=== PATIENT | male | born 1990 | race Caucasian/White ===

== ENCOUNTER 2019-07-17 11:41 | Observation (INO) ==
--- NOTE | 2019-07-16 15:25 | Anesthesiology Consultation ---
Date of Service July 16, 2019 Assessment & Plan (1) Encounter for pre-operative examination: Chart Review Chart Review: Acceptable Risk for Surgery and Patient NOT seen in Pre Admission Testing History Surgery Operation Date: 07/17/19 07:00 Proposed Procedures p Left Open Inguinal Hernia Repair with Mesh - Tom Jeff DO s Left Orchiectomy - Zoltan Lake DO Height/Weight Height: 6 ft 7 in Weight: 114.759 kg Allergies Allergy/AdvReac Type Severity Reaction Status Date / Time cefaclor Allergy Mild as child Verified 07/16/19 14:51 Iodinated Contrast Media Allergy Mild swelling Verified 07/16/19 14:51 of lips PEDIAZOL Allergy Mild as child Uncoded 07/16/19 14:51 Medications Home Medications Medication Instructions Recorded Confirmed Last Taken No Known Home Medications 07/16/19 07/16/19 Unknown Past Medical History Medical History GERD (gastroesophageal reflux disease) Gilbert disease HTN (hypertension) no medication Testicular neoplasm Past Family History Family History Grandfather Prostate cancer Past Surgical History Surgical History Hx of myringotomy as child Status post adenoidectomy Social History Smoking Status: Never smoker Do You Dip or Chew Tobacco: No Hx Alcohol Use: Yes alcohol intake frequency: a few times a month Hx Substance Use: No substance use type: does not use
[~2019-07-17 11:41] MED LIST: CEFAZOLIN 2000MG 2,000 MG/15 ML SYR IV SCH; LR 15ML/HR IV SCH
--- NOTE | 2019-07-17 13:33 | History & Physical Bridge Note ---
Date of Service July 17, 2019 History & Physical Bridge Note I have examined the patient, reviewed the History & Physical and in the interval since the performance of the History & Physical I have noted the following changes of clinical significance: no changes noted Plan for radical inguinal orchiectomy.
[2019-07-17] MEDS ORDERED: LABETALOL HCL IV 5 MG/ML 20ML IV PRN (14:14)
[2019-07-17] MEDS ORDERED: ATROPINE SULFATE 0.1 MG/ML 10ML SYR IV PRN (14:14)
[2019-07-17] MEDS ORDERED: KETOROLAC 30 MG/ML VIAL IV PRN (14:14)
[2019-07-17] MEDS ORDERED: ONDANSETRON INJ 2 MG/ML 2 ML VIAL IV PRN ×2 (14:14→19:44)
[2019-07-17] MEDS ORDERED: fentaNYL citrate 100 MCG/2 ML VIAL IV PRN (14:14)
[2019-07-17] MEDS ORDERED: fentaNYL citrate 100 MCG/2 ML VIAL ONE ×2 (14:35→15:20)
[2019-07-17] MEDS ORDERED: MIDAZOLAM HCL 1 MG/ML 2ML VIAL ONE (14:36)
[2019-07-17] MEDS ORDERED: EPINEPHrine INJ 1 MG/ML AMP ONE (14:47)
[2019-07-17] MEDS ORDERED: BUPIVACAINE 0.5 % 5 MG/1 ML MPF 30ML VIAL ONE (14:47)
[2019-07-17] MEDS ORDERED: PROPOFOL IV EMULSION 10 MG/ML 20 ML VIAL IV ONE ×2 (15:20→15:32)
[2019-07-17] MEDS ORDERED: LIDOCAINE HCL 2% 2 ML VIAL/AMP(20MG/ML) INFIL ONE (15:20)
[2019-07-17] MEDS ORDERED: DEXAMETHASONE SOD INJ 4 MG/ML VIAL ONE (15:23)
[2019-07-17] MEDS ORDERED: ONDANSETRON INJ 2 MG/ML 2 ML VIAL ONE (15:23)
[2019-07-17] MEDS ORDERED: HYDROmorphone INJ 2 MG/ML SYR/VIAL ONE (15:35)
--- NOTE | 2019-07-17 16:08 | Operative Report ---
PG Post Operative Report Pre & Post Diagnosis Operation Date: 07/17/19 07:00 Pre-Op Diagnosis: Left Inguinal Hernia; Left Testicular Mass Post-Op Diagnosis: Left Inguinal Hernia; Left Testicular Mass I identified the patient and participated in the time-out.: Yes Procedure Operation Date: 07/17/19 07:00 Actual Procedures s Left Open Inguinal Hernia Repair with Mesh(Left) - Tom Jeff DO p Left Inguinal Radical Orchiectomy(Left) - Zoltan Lake DO Surgeon Zoltan Lake II, DO Tip Finisher DO Tomer Estimated Blood Loss 5 Findings Consistent with Post-Op Diagnosis Significant inguinal hernia requiring repair prior to high ligation and incision of cord structures. Specimens Left Radical Testicle and Cord Drains None Anesthesia Type General Complications none Disposition Disposition: Recovery Room Indications Left solid mass of the testicle. Risks and benefits discussed at length. Description of Procedure Patient was consented and brought back to the operating room. Patient was placed under anesthesia in the supine position. Patient was prepped and draped in the regular sterile fashion. A time out was completed. With the time out completed and the patient prepped, the inguinal region on the left was marked and local injected into the subcutaneous tissues. An incision was made with a scalpel and the deep tissues were dissected with bovie electrocautery. Dissection was taken down to the inguinal ring. The was retracted and exposed. The Inguinal ring was opened with Metzenbaum scissors. The cord was isolated and a mary drain was utilized to isolate it further. The very large inguinal hernia limited ability to isolate the cord structure. To further isolate the cord, the inguinal hernia had to be reduced. With reduction, the hernia continued to enter into the field. Dr. Jeff with general surgery was intraoperatively consulted to assist with the inguinal hernia. This was able to be retracted further. The cord was then isolated along the inguinal canal and dissected free. Dulce Clamps were placed across the cord. The Cord was then cut and the Testicle was delivered from the scrotum. This was freed from the scrotal attachments. This was then passed off and sent for pathologic analysis. The cord stump was inspected. The cord was then ligated x 2 with silk ties and with a 1-0 Silk stitch. This was then assessed. No bleeding or other issues. The inguinal defect was assessed. Discussion with DO Tomer it was decided to close the defect to repair the inguinal hernia. Please see his note for the full report. The area was irrigated with copious irrigation and inspected. No areas of concern. The scrotal wall was also inspected and free of issues. After repair of the hernia defect, closure was completed by the General Surgery Team. The skin was closed with them and glue placed over the in cision. Please see their note for full report. The patient was cleaned, aroused from anesthesia, and transferred to the pacu in stable condition having tolerated the procedure well with no complications. I was present and participated in all aspects of the procedure. Please see General Surgery Operative report for the full information. Dr. Jeff was eugene during the closure of the hernia and the closure of the layers and skin. I attest to the content of the Intraoperative Record and any orders documented therein. Any exceptions are noted below.
--- NOTE | 2019-07-17 16:13 | Operative Report ---
PG Post Operative Report Pre & Post Diagnosis Operation Date: 07/17/19 07:00 Pre-Op Diagnosis: Left Inguinal Hernia; Left Testicular Mass Post-Op Diagnosis: Left Inguinal Hernia; Left Testicular Mass I identified the patient and participated in the time-out.: No Procedure Operation Date: 07/17/19 07:00 Actual Procedures s Left Open Inguinal Hernia Repair with Mesh(Left) - Tom Jeff DO p Left Orchiectomy(Left) - Zoltan Lake DO Surgeon Tom Jeff DO Multilith Operator barbi Barker Estimated Blood Loss 5 Findings Consistent with Post-Op Diagnosis Specimens none ( testicle per Dr. Lake) Description of Procedure I was called for an intraoperative consult by Dr. Lake. The patient was already in the operating room with a left inguinal incision already made. They were there to perform a left orchiectomy for a testicular mass. During dissection of the cord Dr. Lake noted an indirect hernia with incarceration. This made it impossible for him to safely transect the cord and cord structures for appropriate oncologic resection. At this point I scrubbed into the case to evaluate. The hernia sac was in fact an indirect hernia that was incarcerated. We were able to dissect this back to its neck with the cord and cord structures and then reduce it. It was able to stay self reduced. At this point Dr. Lake completed his left orchiectomy. Once this was completed I then used a piece of polypropylene mesh to repair the inguinal canal. It was secured with 0 Ethibond and secured distally to Syed's ligament laterally along the shelving portion of Poupart's ligament and medially along the midline musculature. The mesh laid nice and flat and tension-free. It did have a keyhole incorporated into it which I closed again using 0 Ethibond since he did not have a spermatic cord or cord structures. There was adequate hemostasis at the end of the procedure. I thoroughly irrigated the wound. I injected Marcaine around the edges of the mesh for postoperative analgesia. A final irrigation was performed and then the external bleak aponeurosis was closed using 2-0 Vicryl in a running fashion. Soft tissue was closed using 3-0 Vicryl and skin was closed using 4-0 Monocryl. Some additional Marcaine was injected around the incision and Dermabond glue was used as a dressing. The patient was awakened extubated and transferred recovery in stable condition. Please see Dr. Lake dictation for a detailed account of his portion of the surgery. My physician offset press assistant was present throughout my portion of the procedure. He helped with exposure for the repair as well as for wound closure and dressing placement. I attest to the content of the Intraoperative Record and any orders documented therein. Any exceptions are noted below.
--- NOTE | 2019-07-17 16:48 | Anesthesiology Progress Note ---
Date of Service July 17, 2019 Anesthesia Post Procedure Vital Signs Vital Signs: Temp Pulse Pulse Resp BP Pulse Ox 07/17/19 16:45 79 18 141/79 H 95 07/17/19 16:35 84 13 134/92 98 07/17/19 16:25 82 15 143/83 H 100 07/17/19 16:19 36.5 C 91 H 15 133/74 98 07/17/19 12:22 37.2 C 95 H 20 163/105 H 97 Pain Intensity Left Groin: Pain Intensity: 3 Transfer of Care Handoff Completed per policy Notes Mental Status: alert / awake / arousable Patient Amnestic to Procedure: Yes Nausea / Vomiting: adequately controlled Pain: adequately controlled Airway Patency, RR, SpO2: stable & adequate BP & HR: stable & adequate Hydration State: stable & adequate Anesthetic Complications: no major complications apparent
[2019-07-17] MEDS ORDERED: HYDROCODONE/ACETAMOPHEN 5/325MG TAB PO STA (17:26)
[2019-07-17] MEDS ORDERED: HYDROCODONE/ACETAMOPHEN 5/325MG TAB PO ONE (17:30)
[2019-07-17] MEDS ORDERED: ALUMINUM/MAGNESIUM SUSP 30 ML UDC PO PRN (19:44)
[2019-07-17] MEDS ORDERED: ACETAMINOPHEN 325 MG TAB PO PRN (19:44)
--- NOTE | 2019-07-17 19:45 | Anesthesiology Progress Note ---
Date of Service July 17, 2019 Anesthesia Post Procedure Vital Signs Vital Signs: Temp Pulse Pulse Resp BP Pulse Ox 07/17/19 18:45 81 16 129/90 98 07/17/19 18:00 70 12 102/61 96 07/17/19 17:45 83 16 140/87 95 07/17/19 17:15 37.2 C 80 16 141/91 H 95 07/17/19 17:06 86 14 136/84 95 07/17/19 16:55 36.8 C 68 15 133/77 96 07/17/19 16:45 79 18 141/79 H 95 07/17/19 16:35 84 13 134/92 98 07/17/19 16:25 82 15 143/83 H 100 07/17/19 16:19 36.5 C 91 H 15 133/74 98 07/17/19 12:22 37.2 C 95 H 20 163/105 H 97 Pain Intensity Left Groin: Pain Intensity: 3 Notes Mental Status: alert / awake / arousable Patient Amnestic to Procedure: Yes Nausea / Vomiting: adequately controlled Pain: adequately controlled Airway Patency, RR, SpO2: stable & adequate BP & HR: stable & adequate and see Notes below Hydration State: stable & adequate and see Notes below Anesthetic Complications: no major complications apparent Notes: The patient is s/p orchiectomy and hernia repair. He was signed out of PACU by Dr. Xiong and was doing well. Around 1800 he had to go to the bathroom in [facility]. While standing in the bathroom, he felt lightheaded so the nurse suggest that he sit down. When he sat down, he passed out. A eliza haque was called. The patient was quickly revived. He was helped back to bed. He was given one liter of IV fluid. His SBP went from 140 to 109. All other vitals remained stable. The patient felt nauseous at this point. Around 1914 the patient felt well enough to go to the bathroom again. The patient was sitting on the toilet when he felt nauseous and then lost consciousness. A second eliza haque was called. The patient was soon revived and helped to bed by the nurses. His vitals were checked and are stable. A BSG was 174. He is awake and talking. He feels well now while sitting in bed. The medicine team has ordered an EKG and will admit the patient overnight for observation. The patient and his family member agree with this plan. The [facility] are contacting Dr. Jeff and Dr. Lake to make them aware.
[2019-07-17 20:15] LABS: Basophils # (auto) 0.01 K/uL (0-0.2); Basophils % (auto) 0.1 %; Eosinophils # (auto) 0.01 K/uL (0-0.5); Eosinophils % (auto) 0.1 %; Hematocrit (blood only) 43.2 % (42-52); Hemoglobin 15.1 g/dL (14.0-18.0); Immature Granulocytes # (auto) 0.05 K/uL (0.00-0.02); Immature Granulocytes % (auto) 0.3 %; Lymphocytes # (auto) 0.66 K/uL (1.2-3.4); Lymphocytes % (auto) 3.8 %; Mean Corpuscular Hemoglobin 31.3 pg (25-34); Mean Corpuscular Volume 89.4 fL (80-100); Mean Platelet Volume 10.3 fL (7.4-10.4); Monocytes # (auto) 0.26 K/uL (0.11-0.59); Monocytes % (auto) 1.5 %; Neutrophils # (auto) 16.43 K/uL (1.4-6.5); Neutrophils % (auto) 94.2 %; Platelet Count 273 K/uL (130-400); RDW Coefficient of Variation 12.2 % (11.5-14.5); RDW Standard Deviation 39.6 fL (36.4-46.3); Red Blood Count 4.83 M/uL (4.7-6.1); White Blood Count 17.42 K/uL (4.8-10.8)
[2019-07-17] MEDS ORDERED: MoRPHine SULFATE 2 MG/ML CARP IV PRN (21:01)
[2019-07-17 21:06] LABS: BUN Creatinine Ratio 18.6 (10-20); Blood Urea Nitrogen 20 mg/dl (7-18); Calcium 8.6 mg/dl (8.5-10.1); Carbon Dioxide 26 mmol/L (21-32); Chloride 107 mmol/L (98-107); Creatinine Clr Calc Pharmacy 131.3 ml/min; Est GFR (Non-African American) 90.6; Glucose 158 mg/dl (70-99); Potassium 3.5 mmol/L (3.5-5.1); Sodium 139 mmol/L (136-145)
[2019-07-17 21:11] LABS: Troponin I < 0.015 ng/ml (0-0.045)
[2019-07-17] MEDS: OXYCODONE/ACETAMINOPHEN 5mg/325mg TAB PO PRN (21:39)
--- NOTE | 2019-07-17 22:08 | History & Physical Report ---
Date of Service July 17, 2019 Assessment & Plan (1) Syncope: Post-Op Syncope Appears to be vasovagal or micturition associated syncope or associated with visceral nerve stimulation from surgery Very little concern for post op blood loss based on exam with soft nontender abdomen and normal appearing incision Will check CBC, bmp, troponin, and give 1 L NSS bolus EKG performed and interpreted at bedside, normal sinus Will admit to tele for obs overnight Hope to d/c home tomorrow morning. Testicular Mass Concern for testicular cancer Orchiectomy performed today, will follow up with urology outpatient F/E/N: Regular diet, Bolused 1 L NSS repeat if needed based on vitals DVT PPx: SCD Dispo: Likely home tomorrow as symptoms improve (2) Testicular mass: History of Present Illness Chief Complaint: Recurrent Syncope post op Primary Care Provider: NO PCP Noah Rutherford is a 29 year old gentleman here today for an orchiectomy for a left testicular mass in same day surgery with Dr. Lake. He had surgery which included a hernia repair performed by general surgery. Surgery was successful and patient was moved to same day surgery recovery. At around 6 pm patient stood up to go to the bathroom. At this time he began to feel pre syncopal and pulled the help cord and a code purple was called. He lost consciousness and was helped immediately, he did not hit his head or have any injuries. He came to quickly and code purple was called off. BP immediately after this incident was 100's/60's and quickly improved back to 130/80's. An hour and a half later another code purple was called after patient got up to go to the bathroom again. He was advised to stay seated this time and while on the toilet became presyncopal again. Again called for help and again lost consciousness this time while seated. Code purple was called which I responded to and found patient looking pale but awake and I helped him with the nursing team back into bed. At that time blood pressure again dropped to 100's over 60's and the rest of his vitals were WNL. Physical exam was unremarkable, no evidence of post op bleeding, abdomen soft and nontender apart from some incisional pain. Decision was made at this time to admit patient for observation overnight as he was not safe to discharge home. On review of systems patient only currently endorses incisional pain, but otherwise feels like himself. He denies any palpitations, fevers, chills, vertigo, light headedness (currently though he did experience this before syncopizing) He is accompanied by his sister. Allergies Allergy/AdvReac Type Severity Reaction Status Date / Time cefaclor Allergy Mild as child Verified 07/16/19 14:51 Iodinated Contrast Media Allergy Mild swelling Verified 07/16/19 14:51 of lips PEDIAZOL Allergy Mild as child Uncoded 07/16/19 14:51 Home Medications Home Medications Medication Instructions Recorded Confirmed Type hydrocodone-acetaminophen [[place]] 1 - 2 tab PO Q4H PRN #15 tab 07/17/19 Rx Past Med/Surg History Medical History GERD (gastroesophageal reflux disease) Gilbert disease HTN (hypertension) no medication Testicular neoplasm Surgical History Hx of myringotomy as child Status post adenoidectomy Family History Grandfather Prostate cancer Social History (Updated 07/16/19 @ 12:57 by Monica Castillo) Preferred Language: Tuvaluan Communication Ability: Effective Antiquer Required: No Beliefs That Will Affect Care: None marital status: Current Living Situation: Alone current occupational status: employed Other Information That Helps Us Care for You: No Feels Safe at Home: Yes Safety Concerns: Feels Safe At This Time Smoking Status: Never smoker Do You Dip or Chew Tobacco: No ; Second Hand Exposure: No ; Tobacco Cessation Education Requested by Patient: No Hx Alcohol Use: Yes Alcohol Intake Frequency: Holidays/Special Occasions Hx Substance Use: No Review of Systems Review of Systems: All systems reviewed & are unremarkable except as noted in HPI & below Physical Exam Constitutional: Constitutional: Patient is appears to be a healthy well developed 29 year old man in no acute distress but with clear pallor and anxious appearance Eyes: PERRLA, Anicteric Sclerae ENMT: NAD Resp: Lungs clear to auscultation, no increased work of breathing Cards: Heart sounds dual, regular rate and rhythm, strong pulses in all extremities GI: Incision LLQ, abdomen soft, nontender apart from incision SKin: Incision as above, otherwise warm and well perfused Results & Data Vital Signs (Past 12 Hours) Vital Signs Temp Pulse Pulse Resp BP Pulse Ox 07/17/19 19:51 121/84 07/17/19 18:45 81 16 129/90 98 07/17/19 18:00 70 12 102/61 96 07/17/19 17:45 83 16 140/87 95 07/17/19 17:15 37.2 C 80 16 141/91 H 95 07/17/19 17:06 86 14 136/84 95 07/17/19 16:55 36.8 C 68 15 133/77 96 07/17/19 16:45 79 18 141/79 H 95 07/17/19 16:35 84 13 134/92 98 07/17/19 16:25 82 15 143/83 H 100 07/17/19 16:19 36.5 C 91 H 15 133/74 98 07/17/19 12:22 37.2 C 95 H 20 163/105 H 97 Code Status & VTE Plan VTE Prophylaxis Plan VTE Prophylaxis will be ordered: Yes Supervising Physician Co-Signing Physician Notes Attending addendum: I have physically seen this patient, have supervised the medical residents activities, and agree with the H&P unless as otherwise noted. Assessment and Plan: Syncope- The patient will be admitted to telemetry for serial cardiac enzymes, serial EKG's, cardiac rhythm monitoring and a 2-D echocardiogram with Dopplers. Differential includes vasovagal/micturition syncope, delayed metabolism of anesthesia, pain medication issue, others Neuro checks. Status post orchiectomy- Urologist has been notified of admission. Remaining orders and notations as noted. Resident Activity Tracking Resident Involvement: Resident Care Provided Care Provided: Adult [facility]
[2019-07-18] MEDS: OXYCODONE/ACETAMINOPHEN 5mg/325mg TAB PO PRN ×5 (03:43→23:13)
--- NOTE | 2019-07-18 07:52 | Anesthesiology Progress Note ---
Date of Service July 18, 2019 Anesthesia Post Procedure Vital Signs Vital Signs: Temp Pulse Pulse Pulse Resp BP Pulse Ox 07/18/19 04:18 36.6 C 78 18 125/72 97 07/18/19 00:05 85 07/17/19 23:15 36.9 C 76 18 135/82 97 07/17/19 22:21 82 07/17/19 20:30 36.8 C 82 18 140/78 99 07/17/19 19:51 121/84 07/17/19 18:45 81 16 129/90 98 07/17/19 18:00 70 12 102/61 96 07/17/19 17:45 83 16 140/87 95 07/17/19 17:15 37.2 C 80 16 141/91 H 95 07/17/19 17:06 86 14 136/84 95 07/17/19 16:55 36.8 C 68 15 133/77 96 07/17/19 16:45 79 18 141/79 H 95 07/17/19 16:35 84 13 134/92 98 07/17/19 16:25 82 15 143/83 H 100 07/17/19 16:19 36.5 C 91 H 15 133/74 98 07/17/19 12:22 37.2 C 95 H 20 163/105 H 97 Pain Intensity Left Groin: Pain Intensity: 7 Notes Mental Status: alert / awake / arousable and participated in evaluation Patient Amnestic to Procedure: Yes Nausea / Vomiting: adequately controlled Pain: adequately controlled Airway Patency, RR, SpO2: stable & adequate BP & HR: stable & adequate Hydration State: stable & adequate Anesthetic Complications: no major complications apparent and Pt Satisfied with anesthetic care Notes: Pt had a vagal episode and had to be admitted, but states that e is doing fine this am
--- NOTE | 2019-07-18 09:36 | Discharge Summary ---
Date of Service July 18, 2019 Admission HPI Per Admitting Provider Noah Rutherford is a 29 year old gentleman here today for an orchiectomy for a left testicular mass in same day surgery with Dr. Lake. He had surgery which included a hernia repair performed by general surgery. Surgery was successful and patient was moved to same day surgery recovery. At around 6 pm patient stood up to go to the bathroom. At this time he began to feel pre syncopal and pulled the help cord and a code purple was called. He lost consciousness and was helped immediately, he did not hit his head or have any injuries. He came to quickly and code purple was called off. BP immediately after this incident was 100's/60's and quickly improved back to 130/80's. An hour and a half later another code purple was called after patient got up to go to the bathroom again. He was advised to stay seated this time and while on the toilet became presyncopal again. Again called for help and again lost consciousness this time while seated. Code purple was called which I responded to and found patient looking pale but awake and I helped him with the nursing team back into bed. At that time blood pressure again dropped to 100's over 60's and the rest of his vitals were WNL. Physical exam was unremarkable, no evidence of post op bleeding, abdomen soft and nontender apart from some incisional pain. Decision was made at this time to admit patient for observation overnight as he was not safe to discharge home. On review of systems patient only currently endorses incisional pain, but otherwise feels like himself. He denies any palpitations, fevers, chills, vertigo, light headedness (currently though he did experience this before syncopizing) He is accompanied by his sister. Discharge Data Allergies Allergy/AdvReac Type Severity Reaction Status Date / Time cefaclor Allergy Mild as child Verified 07/16/19 14:51 Iodinated Contrast Media Allergy Mild swelling Verified 07/16/19 14:51 of lips PEDIAZOL Allergy Mild as child Uncoded 07/16/19 14:51 Procedures Performed Operation Date: 07/17/19 07:00 Actual Procedures s Left Open Inguinal Hernia Repair with Mesh(Left) - Tom Jeff, DO p Left Orchiectomy(Left) - Zoltan Lake, DO Hospital Course (1) Syncope: Post-Op Syncope Appears to be vasovagal or micturition associated syncope or associated with visceral nerve stimulation from surgery Very little concern for post op blood loss based on exam with soft nontender abdomen and normal appearing incision Will check CBC, bmp, troponin, and give 1 L NSS bolus EKG performed and interpreted at bedside, normal sinus Will admit to tele for obs overnight Hope to d/c home tomorrow morning. Testicular Mass Concern for testicular cancer Orchiectomy performed today, will follow up with urology outpatient F/E/N: Regular diet, Bolused 1 L NSS repeat if needed based on vitals DVT PPx: SCD Dispo: Likely home tomorrow as symptoms improve (2) Testicular mass: Discharge Plan Discharge Items Patient Disposition: Home - Self-Care Reason For Visit: Left Inguinal Hernia; Testicular Mass; Syncope Discharge Diagnosis: Same Condition on Discharge: Good Activity: Resume your previous activity Lifting: No more than 25 pounds and Wait until after follow-up appointment Bathing Comment: Okay to shower in 24 hours. Sexual Activity: Wait until after follow-up appointment Exercise/Sports: Gradually increase as tolerated and Wait until after follow-up appointment Non-emergency contact: Surgeon and Urologist Call non-emergency contact if: you have any medication questions, your symptoms worsen, your pain is not controlled, your pain is worsening, your pain is con cerning for you, you have a fever, your temperature is above 101.5, your wound has increased redness, your wound has increased drainage and your wound pain has increased Follow-up/Referrals: Tom Jeff, DO [Surgeon] - (In 1-2 weeks, call to schedule if you do not have an appt) PCP,NO [Primary Care Provider] - Diet: Regular Addtl Attending Provider Instructions: Please take all medications as prescribed and keep follow-ups as scheduled. Please call our office at [phone] with any questions, concerns or need to reschedule appointments for any reason. We are happy to assist you. Complete antibiotics as prescribed, if indicated. Please do not drive, drink alcohol or operate machinery while taking prescription pain medication. We recommend continuing a stool softener (i.e. Colace) to prevent constipation/straining for at least two weeks after your procedure. Drink plenty of fluids, avoid sexual or strenuous exercise and do not lift >25 pounds until your follow-up. Call [facility] at [phone] promptly if you experience: Fever of 101F or greater Pain thats not controlled with medicine Trouble urinating or inability to urinate Severe pain into flank or severe scrotal swelling. Addtl Black Top Raker Provider Instructions: The dizziness and syncopal episodes you experienced after surgery were likely secondary to coming out of anesthesia and overactivation of your vagus nerve. To reduce likelihood of this happening again, we advise staying well hydrated and taking your time to change positions from laying to sitting, and sitting to standing. Putting increased pressure on your abdomen with movements such as bearing down or squatting can also illicit these reactions in the short term, so we advise taking extra precautions and letting someone know if you feel dizzy before going to the restroom. Pending Studies at Discharge: Yes (pathology ) Stand-Alone Forms: Anesthesia/Sedation, Adult, [facility] Medications and DC Order Prescriptions: New hydrocodone-acetaminophen [[place]] 5-325 mg tablet 1 - 2 tab PO Q4H PRN (Reason: pain, initial therapy, max 8 tabs daily) Qty: 15 RF: 0 Discharge Orders: Discharge Order (Routine); Ordered 07/17/19 Ordered By: Zoltan Kelsey/Other Patient Handouts: Surgery Prevent DVT After Admission Data Admit Date/Time: 07/17/19 19:43 Attending Provider: Oseas Contreras Admit Provider: Min Keane Primary Care Provider: PCP,NO Other Providers: Tom Jeff ; Annamarie Woodard
--- NOTE | 2019-07-18 11:54 | Urology Progress Note ---
Date of Service July 18, 2019 Assessment & Plan (1) Testicular mass: POD #1 s/p left inguinal hernia and left orchiectomy Admitted for syncopal episodes and orthostasis. Continue to improve, will allow primary service to direct disposition. Continue ice as needed, okay to use pyridium for dysuria. All questions answered, followup arranged. Subjective POD #1 s/p left inguinal hernia repair and left orchiectomy Pt was admitted for repeat syncopal episode post operatively. Having some orthostasis, nausea with standing. Pt is tolerating PO well. Some mild dysuria. No other complaints Moderate pain to incision site as expected, using ice. Review of Systems Review of Systems: All systems reviewed & are unremarkable except as noted in HPI & below Physical Exam Physical Exam: A&Ox3 Resp rate regular abd soft, nontender incision c/d/i Results & Data Vital Signs (Past 12 Hours) Vital Signs Temp Pulse Pulse Pulse Resp BP Pulse Ox 07/18/19 08:20 79 133/79 07/18/19 07:00 36.5 C 79 16 119/83 98 07/18/19 04:18 36.6 C 78 18 125/72 97 07/18/19 00:05 85 PG Care Time/CCT Total # of Minutes Spent Total Time Spent with Patient: Total time spent is greater than 50% in coordination of care (as documented) at patient's floor/unit and/or counseling patient:
--- NOTE | 2019-07-18 14:34 | Surgery Progress Note ---
Date of Service July 18, 2019 Assessment & Plan (1) Testicular mass: POD 1 inguinal hernia repair, orchiectomy, syncope no issues with hernia repair home when BP stable Dr. Jeff is covering the weekend if there are any concerns Subjective still feels lightheaded when getting up, tolerating diet, pain control good Physical Exam Gastrointestinal (Abdomen): Inspection/Auscultation: + abdominal surgical incision (clean, dry, no scrotal swelling) Percussion/Palpation: abdomen soft Results & Data Vital Signs (Past 12 Hours) Vital Signs Temp Pulse Pulse Resp BP Pulse Ox 07/18/19 11:54 36.5 C 89 22 147/91 H 97 07/18/19 08:20 79 133/79 07/18/19 07:00 36.5 C 79 16 119/83 98 07/18/19 04:18 36.6 C 78 18 125/72 97 PG Care Time/CCT Total # of Minutes Spent Total Time Spent with Patient: Total time spent is greater than 50% in coordination of care (as documented) at patient's floor/unit and/or counseling patient:
--- NOTE | 2019-07-18 14:35 | Hospitalist Progress Note ---
Date of Service July 18, 2019 Assessment & Plan (1) Syncope: Orthostatic hypotension - likely secondary to increased vagal tone from orchiectomy - orthostatics showed drop of >20 mmHg systolic and diastolic - has been getting fluids throughout admission; unlikely dehydration - will continue to monitor for symptom improvement as he heals from surgery - expect rebound within the next few days. If still symptomatic by Sunday, will consider POTS/other more chronic causes of orthostatic hypotension Testicular Mass POD1 s/p orchiectomy minimal pain able to urinate without issue today F/E/N: Regular diet, Bolused 1 L NSS repeat if needed based on vitals DVT PPx: SCD Dispo: med/surg (2) Testicular mass: Supervising Physician Co-Signing Physician Notes I personally examined the patient and verified all eugene points of history and exam, discussed case, and agree with decision making with Dr Hebert. Generally feeling okay whenever he is in bed. Was up into the chair without any lightheadedness, but he notes that it was really with walking that he was much more lightheaded. He has not walked since this morning he has not felt lightheaded since then, but did not feel safe with his lightheadedness whenever he was walking this morning. Sister present at the bedside. EKG does show an RSR prime in V1 V2 V3 and so on consistent with a right bundle branch block and repolarization changes that seem to fit with that. Persistent orthostasisagree with admitting physician that he likely is suffering from a constant ongoing vagal response given the nature of the surgery done. He does seem to be improving somewhat, just still too orthostatic to go home, will continue supportive care and observation for now. If this continues to go on without improvement then more obscure syndromes such as pots or other conduction issues may need to be considered, but thus far is not showing anythin g worrisome on monitor, and more than likely his symptoms will resolve just given a little bit more time. He is stable for transfer to medical, continue current care otherwise. Otherwise as above. Subjective Feeling well this morning. Denies any nausea or vomiting or dizziness at baseline, but does have dizziness and nausea that returns upon standing. No com plaints of chest pain or SOB. Review of Systems Constitutional: no fever, no chills, no body aches and no fatigue Respiratory: no cough and no dyspnea Cardiovascular: no chest pain, no dyspnea and no edema Gastrointestinal: no abdominal pain, no nausea, no vomiting, no constipation and no diarrhea/loose stools Physical Exam Constitutional: cooperative; no acute distress and not ill appearing Neck: normal visual inspection Respiratory: normal respiratory effort and able to speak in complete sentences; no respiratory distress, no labored breathing, no retractions, no cough and no audible wheezes Auscultation: lungs clear to auscultation bilaterally; no crackles, no rales, no rhonchi and no wheezes Cardiovascular: Rate/Rhythm: regular rate and regular rhythm Heart Sounds: normal S1 and normal S2; no gallop, no murmur and no cardiac rub Vessels: posterior tibial pulses present Extremities: no pedal edema and no edema Results & Data Vital Signs (Past 12 Hours) Vital Signs Temp Pulse Pulse Resp BP Pulse Ox 07/18/19 11:54 36.5 C 89 22 147/91 H 97 07/18/19 08:20 79 133/79 07/18/19 07:00 36.5 C 79 16 119/83 98 07/18/19 04:18 36.6 C 78 18 125/72 97 Orthostatics this AM: 127/81 laying in bed, 116/77 sitting, 105/69 standing with dizziness upon standing Resident Activity Tracking Resident Involvement: Resident Care Provided Care Provided: Adult Hospital Medicine
--- NOTE | 2019-07-18 18:51 | Billing Data ---
Date of Service July 18, 2019 Coding Level of Care Code 83280 Subseq Obs Care Lvl 2
--- NOTE | 2019-07-19 06:08 | Billing Data ---
Date of Service July 19, 2019 Coding Level of Care Code 09729 OBS Care - Level 3
[2019-07-19 08:05] LABS: Basophils # (auto) 0.01 K/uL (0-0.2); Basophils % (auto) 0.2 %; Eosinophils # (auto) 0.06 K/uL (0-0.5); Eosinophils % (auto) 0.9 %; Hematocrit (blood only) 34.5 % (42-52); Hemoglobin 11.8 g/dL (14.0-18.0); Immature Granulocytes # (auto) 0.02 K/uL (0.00-0.02); Immature Granulocytes % (auto) 0.3 %; Lymphocytes # (auto) 0.81 K/uL (1.2-3.4); Lymphocytes % (auto) 12.7 %; Mean Corpuscular Hemoglobin 30.6 pg (25-34); Mean Corpuscular Hgb Conc 34.2 g/dL (32-36); Mean Corpuscular Volume 89.6 fL (80-100); Mean Platelet Volume 9.9 fL (7.4-10.4); Monocytes # (auto) 0.75 K/uL (0.11-0.59); Monocytes % (auto) 11.7 %; Neutrophils # (auto) 4.75 K/uL (1.4-6.5); Neutrophils % (auto) 74.2 %; Platelet Count 190 K/uL (130-400); RDW Coefficient of Variation 12.6 % (11.5-14.5); RDW Standard Deviation 41.2 fL (36.4-46.3); Red Blood Count 3.85 M/uL (4.7-6.1)
--- NOTE | 2019-07-19 08:21 | Surgery Progress Note ---
Date of Service July 19, 2019 Assessment & Plan (1) Testicular mass: Postop day 2 status post left orchiectomy and repair of inguinal hernia. Doing well at this point. Okay from my standpoint for discharge. Follow-up in the office in 7 to 10 days. Subjective Patient doing well/feeling better. No more syncopal or near syncopal episodes. Pain is controlled. Physical Exam Physical Exam: Alert and oriented no acute distress Incision is intact and looks good. Results & Data Vital Signs (Past 12 Hours) Vital Signs Temp Pulse Pulse Resp BP Pulse Ox 07/19/19 08:00 37.3 C 99 H 18 137/80 98 07/18/19 23:20 36.7 C 95 H 18 141/82 H 96 PG Care Time/CCT Total # of Minutes Spent Total Time Spent with Patient: Total time spent is greater than 50% in coordination of care (as documented) at patient's floor/unit and/or counseling patient:
[2019-07-19] MEDS ORDERED: DOCUSATE SODIUM 100 MG CAP PO ONE (08:24)
[2019-07-19 08:28] LABS: BUN Creatinine Ratio 11.2 (10-20); Calcium 8.7 mg/dl (8.5-10.1); Creatinine Clr Calc Pharmacy 157.2 ml/min; Est GFR (Non-African American) 101.8; Potassium 3.6 mmol/L (3.5-5.1)
[2019-07-19] MEDS: OXYCODONE/ACETAMINOPHEN 5mg/325mg TAB PO PRN (13:03)
--- NOTE | 2019-07-19 17:34 | Billing Data ---
Date of Service July 19, 2019 Coding Level of Care Code 31082 OBS Care - Discharge
--- NOTE | 2019-07-19 17:50 | Discharge Summary ---
Date of Service July 19, 2019 Admission HPI Per Admitting Provider Noah Rutherford is a 29 year old gentleman here today for an orchiectomy for a left testicular mass in same day surgery with Dr. Lake. He had surgery which included a hernia repair performed by general surgery. Surgery was successful and patient was moved to same day surgery recovery. At around 6 pm patient stood up to go to the bathroom. At this time he began to feel pre syncopal and pulled the help cord and a code purple was called. He lost consciousness and was helped immediately, he did not hit his head or have any injuries. He came to quickly and code purple was called off. BP immediately after this incident was 100's/60's and quickly improved back to 130/80's. An hour and a half later another code purple was called after patient got up to go to the bathroom again. He was advised to stay seated this time and while on the toilet became presyncopal again. Again called for help and again lost consciousness this time while seated. Code purple was called which I responded to and found patient looking pale but awake and I helped him with the nursing team back into bed. At that time blood pressure again dropped to 100's over 60's and the rest of his vitals were WNL. Physical exam was unremarkable, no evidence of post op bleeding, abdomen soft and nontender apart from some incisional pain. Decision was made at this time to admit patient for observation overnight as he was not safe to discharge home. On review of systems patient only currently endorses incisional pain, but otherwise feels like himself. He denies any palpitations, fevers, chills, vertigo, light headedness (currently though he did experience this before syncopizing) He is accompanied by his sister. Admission Exam (Per Admitting) Constitutional Constitutional: Patient is appears to be a healthy well developed 29 year old man in no acute distress but with clear pallor and anxious appearance Eyes: PERRLA, Anicteric Sclerae ENMT: NAD Resp: Lungs clear to auscultation, no increased work of breathing Cards: Heart sounds dual, regular rate and rhythm, strong pulses in all extremities GI: Incision LLQ, abdomen soft, nontender apart from incision SKin: Incision as above, otherwise warm and well perfused Discharge Data Procedures Performed Operation Date: 07/17/19 07:00 Actual Procedures s Left Open Inguinal Hernia Repair with Mesh(Left) - Tom Jeff DO p Left Orchiectomy(Left) - Zoltan Lake DO Hospital Course (1) Syncope: Mr. Rutherford came to [facility] on 07/17/19 for a planned left inguinal hernia repair and left orchiectomy for removal of a testicular mass. The surgery was uncomplicated; however in the post-operative period he had several syncopal episodes with orthostatic vital signs (reductions of >20 mmHg in both systolic and diastolic pressures). This prompted a hospital admission. His syncopal episodes were thought to be secondary to increased increased vagal tone from orchiectomy. Blood loss from his surgery was minimal and he was provided with IV fluids throughout his hospital stay, thus volume depletion was thought to be non-contributory. He was deemed safe for discharge on 07/19/19 when his orthostatic vitals normalized and he was able to get out of bed and urinate without symptoms. Outpatient items to do: routine post-operative follow-up care unless syncopal episodes recur at which time a full workup for chronic causes of orthostasis (eg POTS) would be recommended (2) Testicular mass: Supervising Physician Co-Signing Physician Notes I personally examined the patient and verified all eugene points of history and exam, discussed case, and agree with decision making with Dr Petersen. Feeling much better. Walking around. No lightheadedness. Feels good to go home. Extensive discussions, answered all questions to the best of my ability. Vitals noted, in general he is awake and alert pleasant no distress. HEENT normocephalic atraumatic mucous membranes moist. Breathing unlabored no accessory muscle use good effort. Skin shows no rashes no pallor or icterus. Persistent orthostasisagree with admitting physician that he likely was suffering from a constant ongoing vagal response given the nature of the surgery done. Now improved, stable for home. Outpatient follow-up. Resident Activity Tracking Resident Involvement: Resident Care Provided Care Provided: Adult [facility]
--- NOTE | 2019-07-19 18:05 | Billing Data ---
Date of Service July 19, 2019 Coding Level of Care Code 46474 OBS Care - Discharge
--- NOTE | 2019-07-19 18:06 | Discharge Summary ---
Date of Service July 19, 2019 Admission HPI Per Admitting Provider Noah Rutherford is a 29 year old gentleman here today for an orchiectomy for a left testicular mass in same day surgery with Dr. Lake. He had surgery which included a hernia repair performed by general surgery. Surgery was successful and patient was moved to same day surgery recovery. At around 6 pm patient stood up to go to the bathroom. At this time he began to feel pre syncopal and pulled the help cord and a code purple was called. He lost consciousness and was helped immediately, he did not hit his head or have any injuries. He came to quickly and code purple was called off. BP immediately after this incident was 100's/60's and quickly improved back to 130/80's. An hour and a half later another code purple was called after patient got up to go to the bathroom again. He was advised to stay seated this time and while on the toilet became presyncopal again. Again called for help and again lost consciousness this time while seated. Code purple was called which I responded to and found patient looking pale but awake and I helped him with the nursing team back into bed. At that time blood pressure again dropped to 100's over 60's and the rest of his vitals were WNL. Physical exam was unremarkable, no evidence of post op bleeding, abdomen soft and nontender apart from some incisional pain. Decision was made at this time to admit patient for observation overnight as he was not safe to discharge home. On review of systems patient only currently endorses incisional pain, but otherwise feels like himself. He denies any palpitations, fevers, chills, vertigo, light headedness (currently though he did experience this before syncopizing) He is accompanied by his sister. Admission Exam Per Admitting Provider Constitutional: Patient is appears to be a healthy well developed 29 year old man in no acute distress but with clear pallor and anxious appearance Eyes: PERRLA, Anicteric Sclerae ENMT: NAD Resp: Lungs clear to auscultation, no increased work of breathing Cards: Heart sounds dual, regular rate and rhythm, strong pulses in all extremities GI: Incision LLQ, abdomen soft, nontender apart from incision SKin: Incision as above, otherwise warm and well perfused Principal Diagnosis Syncope Discharge Exam Constitutional: Patient is appears to be a healthy well developed 29 year old man in no acute distress Eyes: PERRLA, Anicteric Sclerae ENMT: NAD Resp: Lungs clear to auscultation, no increased work of breathing Cards: Heart sounds dual, regular rate and rhythm, strong pulses in all extremities GI: Incision LLQ, abdomen soft, nontender apart from incision SKin: Incision as above, otherwise warm and well perfused Discharge Data Allergies Allergy/AdvReac Type Severity Reaction Status Date / Time cefaclor Allergy Mild as child Verified 07/16/19 14:51 Iodinated Contrast Media Allergy Mild swelling Verified 07/16/19 14:51 of lips PEDIAZOL Allergy Mild as child Uncoded 07/16/19 14:51 Procedures Performed Operation Date: 07/17/19 07:00 Actual Procedures s Left Open Inguinal Hernia Repair with Mesh(Left) - Tom Jeff DO p Left Orchiectomy(Left) - Zoltan Lake DO Hospital Course (1) Syncope: Mr. Rutherford came to [facility] on 07/17/19 for a planned left inguinal hernia repair and left orchiectomy for removal of a testicular mass. The surgery was uncomplicated; however in the post-operative period he had several syncopal episodes with orthostatic vital signs (reductions of >20 mmHg in both systolic and diastolic pressures). This prompted a hospital admission. His syncopal episodes were thought to be secondary to increased increased vagal tone from orchiectomy. Blood loss from his surgery was minimal and he was provided with IV fluids throughout his hospital stay, thus volume depletion was thought to be non-contributory. He was deemed safe for discharge on 07/19/19 when his orthostatic vitals normalized and he was able to get out of bed and urinate without symptoms. Outpatient items to do: routine post-operative follow-up care unless syncopal episodes recur at which time a full workup for chronic causes of orthostasis (eg POTS) would be recommended (2) Testicular mass: Total Time Total Time Spent Total Time Spent (In Minutes): greater than 30 minutes Discharge Plan Discharge Items Patient Disposition: Home - Self-Care Reason For Visit: Left Inguinal Hernia; Testicular Mass; Syncope Discharge Diagnosis: Same Condition on Discharge: Good Activity: Resume your previous activity Lifting: No more than 25 pounds and Wait until after follow-up appointment Bathing Comment: Okay to shower in 24 hours. Sexual Activity: Wait until after follow-up appointment Exercise/Sports: Gradually increase as tolerated and Wait until after follow-up appointment Non-emergency contact: Surgeon and Urologist Call non-emergency contact if: you have any medication questions, your symptoms worsen, your pain is not controlled, your pain is worsening, your pain is concerning for you, you have a fever, your temperature is above 101.5, your wound has increased redness, your wound has increased drainage and your wound pain has increased Follow-up/Referrals: Tom Jeff, DO [Surgeon] - (In 1-2 weeks, call to schedule if you do not have an appt) Zoltan Lake, [Physician] - 07/28/19 9:00 am (Please, follow up at [facility] Office with Dr. Mccray on SundayJuly 28 at 9:00 am. *The office is located at [address] [place] [address] in [place]. If you have any questions, call the office at [phone].) PCP,NO [Primary Care Provider] - Diet: Regular Addtl Attending Provider Instructions: Please take all medications as prescribed and keep follow-ups as scheduled. Please call our office at [phone] with any questions, concerns or need to reschedule appointments for any reason. We are happy to assist you. Complete antibiotics as prescribed, if indicated. Please do not drive, drink alcohol or operate machinery while taking prescription pain medication. We recommend continuing a stool softener (i.e. Colace) to prevent constipation/straining for at least two weeks after your procedure. Drink plenty of fluids, avoid sexual or strenuous exercise and do not lift >25 pounds until your follow-up. Call [facility] [place] [place] [facility] at [phone] promptly if you experience: Fever of 101F or greater Pain thats not controlled with medicine Trouble urinating or inability to urinate Severe pain into flank or severe scrotal swelling. Addtl Relationship Manager Provider Instructions: The dizziness and syncopal episodes you experienced after surgery were likely secondary to coming out of anesthesia and overactivation of your vagus nerve. To reduce likelihood of this happening again, we advise staying well hydrated and taking your time to change positions from laying to sitting, and sitting to standing. Putting increased pressure on your abdomen with movements such as bearing down or squatting can also illicit these reactions in the short term, so we advise taking extra precautions and letting someone know if you feel dizzy before going to the restroom. We discussed your upcoming out-of-town trip. If you feel increased discomfort while riding in a car, be sure to get out, strength your legs and change positions. Increased pain could possibly provoke the vagus nerve and cause another syncopal event. Otherwise, you have no restriction wit regards to travel. Pending Studies at Discharge: Yes (pathology ) Stand-Alone Forms: Anesthesia/Sedation, Adult, My [facility], Opioid Pain Management Medications and DC Order Prescriptions: New hydrocodone-acetaminophen [[place]] 5-325 mg tablet 1 - 2 tab PO Q4H PRN (Reason: pain, initial therapy, max 8 tabs daily) Qty: 15 RF: 0 Discharge Orders: Discharge Order (Routine); Ordered 07/19/19 Ordered By: Rubina Kelsey/Other Patient Handouts: Surgery Prevent DVT After Admission Data Admit Date/Time: 07/17/19 19:43 Attending Provider: Oseas Contreras Admit Provider: Min Keane Primary Care Provider: PCP,NO Other Providers: Tom Jeff ; Annamarie Woodard Other Interventions: Discharge Summary Assessment (RN) Last Done: 07/19/19 12:26 DC Date/Time DO NOT enter until pt leaves facility: 07/19/19 13:15 Supervising Physician Co-Signing Physician Notes I personally examined the patient and verified all eugene points of history and exam, discussed case, and agree with decision making with Dr Petersen. Feeling much better. Walking around. No lightheadedness. Feels good to go home. Extensive discussions, answered all questions to the best of my ability. Vitals noted, in general he is awake and alert pleasant no distress. HEENT normocephalic atraumatic mucous membranes moist. Breathing unlabored no accessory muscle use good effort. Skin shows no rashes no pallor or icterus. Persistent orthostasisagree with admitting physician that he likely was suffering from a constant ongoing vagal response given the nature of the surgery done. Now improved, stable for home. Outpatient follow-up. Resident Activity Tracking Resident Involvement: Resident Care Provided Care Provided: Adult Hospital Medicine
== END 2019-07-19 13:15 | disposition home or self-care (01) ==
LOC: 2E 11:41 → ASU 11:41 → SUATTDRO 19:43 → 3N 07-18 19:45